=== PATIENT | female | born 1955 | race Caucasian/White ===

== ENCOUNTER 2017-01-20 17:58 | Inpatient (IN) | payer OTHER ==
[~2017-01-20] VITALS: Ht 162.6 cm; Wt 52.0 kg
[~2017-01-20 17:58] MED LIST: ACULAR 0.5100 DROP/5 RIGHT EYE; ALBUTEROL2.5 MG/3 M IH; ATIVAN0.5 MG PO; BENADRYL25 MG PO; CENTRUM SILVER1 EAC4 PO; CIPRO500 MG PO; CIPROFLOXACIN H10 ML RIGHT EYE; CIPROFLOXACIN500 M1 PO; COMBIVENT RESPIM4 GM IH; DOCUSATE SODIU100 MG PO; DOXYCYCLINE HY100 MG PO; FLEXERIL10 MG PO; FLUCONAZOLE200 MG PO; GABAPENTIN400 MG PO; HYDROCHLOROTH12.5 M3 PO; LEVAQUIN500 MG PO; LIPITOR10 MG PO; LISINOPRIL20 MG PO; LOPRESSOR25 MG PO; LOPRESSOR50 MG PO; METHADOSE10 MG/1 ML PO; METOPROLOL SUCC25 MG PO; MICROZIDE12.5 M1 PO; MOTRIN IB200 MG PO; MOTRIN400 MG PO; MOTRIN600 MG PO; MUCINEX600 MG PO; MYCOSTATIN 100,60 ML PO; NEURONTIN400 MG PO; NICODERM CQ1 EAC1 TD; NICODERM CQ1 EAC2 TD; NICOTINE PATCH1 EAC2 TD; NORCO 5/3251 TABLET PO; NYSTATIN100000 UN1 PO; OXYCODONE HCL10 MG PO; OXYCODONE HCL5 MG PO; PERCOCET 10/1 TABLET PO; PHENERGAN DM SYR1 ML PO; POTASSIUM CHLO10 MEQ PO; PRED FORTE100 DROP/5 RIGHT EYE; PREDNISONE10 M1 PO; PREDNISONE10 MG PO; PREDNISONE20 MG PO; PREDNISONE5 MG PO; PROAIR HFA8.5 GM IH; PROTONIX40 MG PO; PROZAC20 MG PO; SINGULAIR10 MG PO; SPIRIVA RESPIMAT4 GM IH; SPIRIVA1 INHALATI IH; SYMBICORT60 INHALAT IH; SYNTHROID25 MCG PO; SYNTHROID50 MCG PO; ULTRAM50 MG PO; VENTOLIN HFA18 GM IH; ZANTAC150 MG PO; ZITHROMAX Z-PA250 MG PO; flexeril
[2017-01-20 18:52] LABS: HEMATOCRIT 40.8 % (36.0-46.0); MCH 28.6 PG (29.0-34.0); MCHC 34.6 G/DL (30.0-36.0); MCV 82.8 FL (83-99); MEAN PLAT.VOLUME 9.3 uM^3 (9.5-12.4); PLATELET COUNT 264 K/uL (156-360); RBC DIS.WIDTH-CV 12.1 % (11.8-14.6); RBC DIS.WIDTH-SD 36.7 % (39-53); RED BLOOD COUNT 4.93 M/uL (3.80-5.20)
[2017-01-20 19:28] LABS: CHLORIDE 83 mEq/L (99-109); POTASSIUM 3.5 mEq/L (3.7-5.4); SODIUM 122 mEq/L (136-147)
[2017-01-20 19:30] LABS: GLUCOSE 108 mg/dL (70-99)
[2017-01-20 19:31] LABS: ANION GAP 11 MEQ/L (2-14)
[2017-01-20 19:34] LABS: GFR ESTIMATE (CALCULATED) 48 mL/min/
[2017-01-20 19:35] LABS: UREA NITROGEN (BUN) 26 mg/dL (9-23)
[2017-01-20 19:39] LABS: TROP-I INTERPRETATION NEGATIVE; TROPONIN-I < 0.01 ng/mL (0.0-0.30)
[2017-01-20 19:46] LABS: INFLUENZA A VIRAL ANTIGEN NEGATIVE; INFLUENZA B VIRAL ANTIGEN NEGATIVE
[2017-01-20] MEDS ORDERED: METOPROLOL TART50 MG PO (20:23)
[2017-01-20] MEDS ORDERED: LOPRESSOR25 MG PO (20:24)
[2017-01-20] MEDS ORDERED: PRINIVIL20 MG PO (20:25)
[2017-01-20] MEDS ORDERED: MUCINEX600 MG PO (20:27)
[2017-01-20] MEDS ORDERED: VENTOLIN HFA18 GM IH (20:28)
[2017-01-20] MEDS ORDERED: PROZAC40 MG PO (20:30)
[2017-01-20] MEDS ORDERED: CENTRUM WOMEN1 EACH PO (20:40)
[2017-01-20 22:27] LABS: TOTAL BILIRUBIN 0.5 mg/dL (0.0-1.0)
[2017-01-20 22:28] LABS: ALKALINE PHOSPHATASE 102 IU/L (3-129)
[2017-01-20 22:31] LABS: DIRECT BILIRUBIN 0.3 mg/dL (0.0-0.3)
[2017-01-21] VITALS (7 sets, daily range): BP systolic 109–140; BP diastolic 58–75
[2017-01-21 05:40] LABS: HEMATOCRIT 36.9 % (36.0-46.0); MCH 27.6 PG (29.0-34.0); MCHC 33.3 G/DL (30.0-36.0); MCV 82.7 FL (83-99); MEAN PLAT.VOLUME 9.6 uM^3 (9.5-12.4); PLATELET COUNT 244 K/uL (156-360); RBC DIS.WIDTH-CV 12.2 % (11.8-14.6); RBC DIS.WIDTH-SD 37.1 % (39-53); RED BLOOD COUNT 4.46 M/uL (3.80-5.20); WHITE BLOOD COUNT 8.5 K/uL (4.1-10.2)
[2017-01-21 06:24] LABS: ANION GAP 6 MEQ/L (2-14); CHLORIDE 90 MEQ/L (99-109); GFR ESTIMATE (CALCULATED) > 59 mL/min/; POTASSIUM 3.8 MEQ/L (3.7-5.4); SAMPLE HEMOLYSIS CHECK 0; SAMPLE ICTERIC CHECK 0; SAMPLE LIPEMIA CHECK 0; SODIUM 123 MEQ/L (136-147); UREA NITROGEN (BUN) 27 mg/dL (9-23)
[2017-01-21 06:25] LABS: GLUCOSE 163 mg/dL (70-99)
[2017-01-22 04:10] VITALS: BP 122/66
[2017-01-22 08:06] VITALS: BP 128/69
[2017-01-22 11:38] VITALS: BP 122/67
[2017-01-22 16:42] VITALS: BP 131/71
[2017-01-22 20:05] VITALS: BP 139/81
[2017-01-23 00:33] VITALS: BP 125/71
[2017-01-23 07:52] VITALS: BP 146/74
[2017-01-23] MEDS ORDERED: PREDNISONE20 MG PO (10:24)
[2017-01-23] MEDS ORDERED: LEVAQUIN500 MG PO (10:30)
== END 2017-01-23 15:18 | disposition home or self-care (01) | DRG 190 ==
LOC: EME → EDBD 17:58 → EDOF 21:45 → 5SOUTH 21:45
PROVIDERS: Emergency Medicine; Hospitalist
DX: J44.1 Chronic obstructive pulmonary disease with (acute) exacerbation (principal); J96.21 Acute and chronic respiratory failure with hypoxia; E87.1 Hypo-osmolality and hyponatremia; F11.20 Opioid dependence, uncomplicated; B37.0 Candidal stomatitis; G89.29 Other chronic pain; F33.41 Major depressive disorder, recurrent, in partial remission; I10 Essential (primary) hypertension; E03.9 Hypothyroidism, unspecified; K21.9 Gastro-esophageal reflux disease without esophagitis; Z87.891 Personal history of nicotine dependence; Z99.81 Dependence on supplemental oxygen; Z88.2 Allergy status to sulfonamides; Z88.0 Allergy status to penicillin; Z88.1 Allergy status to other antibiotic agents
CPT/HCPCS: 71020; 80048; 80076; 81003; 82436; 82533 91; 83880; 84133; 84300; 84443; 84484; 85027; 87502; 93005; 94640; 94640 76; 94799; 99202; 99281; 99285; J1644; J2060; J2930; J7030; J7512; J7644

== ENCOUNTER 2017-04-21 23:08 | Inpatient (IN) | payer OTHER ==
[~2017-04-21] VITALS: Ht 162.6 cm; Wt 72.0 kg
[~2017-04-21 23:08] MED LIST changes: +CENTRUM WOMEN1 EACH PO; +METOPROLOL TART50 MG PO; +PRINIVIL20 MG PO; +PROZAC40 MG PO
[2017-04-21 23:36] LABS: HEMATOCRIT 48.8 % (36.0-46.0); MCH 28.7 PG (29.0-34.0); MCHC 33.6 G/DL (30.0-36.0); MCV 85.3 FL (83-99); MEAN PLAT.VOLUME 8.7 uM^3 (9.5-12.4); PLATELET COUNT 302 K/uL (156-360); RBC DIS.WIDTH-CV 13.2 % (11.8-14.6); RBC DIS.WIDTH-SD 41.3 % (39-53); RED BLOOD COUNT 5.72 M/uL (3.80-5.20); WHITE BLOOD COUNT 11.2 K/uL (4.1-10.2)
[2017-04-21 23:52] LABS: CHLORIDE 88 mEq/L (99-109); POTASSIUM 4.1 mEq/L (3.7-5.4); SODIUM 126 mEq/L (136-147)
[2017-04-21 23:53] LABS: GLUCOSE 99 mg/dL (70-99)
[2017-04-21 23:55] LABS: ANION GAP 8 MEQ/L (2-14)
[2017-04-21 23:57] LABS: GFR ESTIMATE (CALCULATED) > 59 mL/min/
[2017-04-21 23:58] LABS: UREA NITROGEN (BUN) 19 mg/dL (9-23)
[2017-04-22 00:01] LABS: TROP-I INTERPRETATION NEGATIVE; TROPONIN-I < 0.01 ng/mL (0.0-0.30)
[2017-04-22] MEDS ORDERED: PROZAC20 MG PO ×2 (01:27→01:28)
[2017-04-22] MEDS ORDERED: HYDROCHLOROTHIA25 MG PO (01:28)
[2017-04-22] MEDS ORDERED: PROTONIX40 MG PO (01:28)
[2017-04-22] MEDS ORDERED: TUDORZA PRESS400 MCG IH (01:29)
[2017-04-22 06:06] VITALS: BP 128/82
[2017-04-22 12:06] VITALS: BP 103/55
[2017-04-22 19:25] LABS: ADD MIUA? YES; BILIRUBIN NEGATIVE; BLOOD SMALL; COLOR YELLOW ((YELLOW)); GLUCOSE (STRIP) NEGATIVE; KETONES NEGATIVE; LEUKOCYTES MODERATE; NITRITE NEGATIVE; PROTEIN (STRIP) NEGATIVE; SPECIFIC GRAVITY 1.025 (1.000-1.030)
[2017-04-22 19:44] VITALS: BP 95/52
[2017-04-22 19:48] LABS: BACTERIA RARE /HPF; BUDDING YEAST 2+; EPITHELIAL CELLS RARE /HPF; MUCUS TRACE /LPF; RED BLOOD CELLS 40-50 /HPF (0-5); UNCLASSIFIED CRYSTALS 2+ /HPF; WHITE BLOOD CELLS 40-50 /HPF (0-5)
[2017-04-22 23:51] VITALS: BP 117/63
[2017-04-23 03:23] VITALS: BP 120/69
[2017-04-23 06:36] LABS: EOSINOPHIL (%) 0 % (0-5); HEMATOCRIT 40.9 % (36.0-46.0); IMMATURE GRANULOCYTE (%) 0.8 % (0.0-0.7); IMMATURE GRANULOCYTE COUNT 0.1 K/uL; INSTRUMENT ABS NEUTROPHIL CT 15.5 K/uL; LYMPHOCYTE COUNT 0.9 K/uL (1.0-2.8); MCV 85.4 FL (83-99); MONOCYTE (%) 2.1 % (3-12); MONOCYTE COUNT 0.4 K/uL (0-0.8); NEUTROPHIL (%) 91.6 % (45-76); NEUTROPHIL COUNT 15.5 K/uL (1.8-6.4); PLATELET COUNT 262 K/uL (156-360); RBC DIS.WIDTH-CV 13.3 % (11.8-14.6); RBC DIS.WIDTH-SD 41.2 % (39-53); RED BLOOD COUNT 4.79 M/uL (3.80-5.20); WHITE BLOOD COUNT 16.9 K/uL (4.1-10.2)
[2017-04-23 06:43] LABS: ANION GAP 7 MEQ/L (2-14); CHLORIDE 90 MEQ/L (99-109); GFR ESTIMATE (CALCULATED) > 59 mL/min/; POTASSIUM 3.8 MEQ/L (3.7-5.4); SAMPLE HEMOLYSIS CHECK 0; SAMPLE ICTERIC CHECK 0; SAMPLE LIPEMIA CHECK 0; SODIUM 124 MEQ/L (136-147); UREA NITROGEN (BUN) 28 mg/dL (9-23)
[2017-04-23 06:52] LABS: GLUCOSE 150 mg/dL (70-99)
[2017-04-23 08:50] VITALS: BP 110/67
[2017-04-23 10:57] VITALS: BP 123/66
[2017-04-23 11:11] LABS: URIC ACID 2.5 mg/dL (3.1-9.2)
[2017-04-23 15:57] VITALS: BP 123/60
[2017-04-23 18:30] LABS: UR CREATININE CONCENTRATION 125.8 MG/DL
[2017-04-23 20:11] VITALS: BP 116/61
[2017-04-24 00:11] VITALS: BP 122/67
[2017-04-24 03:46] VITALS: BP 119/72
[2017-04-24 07:10] LABS: ANION GAP 8 MEQ/L (2-14); CHLORIDE 95 MEQ/L (99-109); GFR ESTIMATE (CALCULATED) > 59 mL/min/; GLUCOSE 139 mg/dL (70-99); POTASSIUM 4.2 MEQ/L (3.7-5.4); SAMPLE HEMOLYSIS CHECK 0; SAMPLE ICTERIC CHECK 0; SAMPLE LIPEMIA CHECK 0; UREA NITROGEN (BUN) 30 mg/dL (9-23)
[2017-04-24 07:11] LABS: SODIUM 131 MEQ/L (136-147)
[2017-04-24 08:02] VITALS: BP 120/80
[2017-04-24] MEDS ORDERED: LEVOFLOXACIN250 MG PO (10:51)
[2017-04-24] MEDS ORDERED: PREDNISONE10 MG PO ×2 (10:53)
[2017-04-24 11:30] VITALS: BP 132/79
[2017-04-24] MEDS ORDERED: TRAMADOL HCL50 MG PO (11:51)
[2017-04-24 15:08] VITALS: BP 136/77
== END 2017-04-24 15:07 | disposition home or self-care (01) | DRG 916 ==
LOC: EME 23:08 → 5SOUTH 04-22 03:26 → EDOF 04-22 03:26 → 5SOUTH 04-22 05:59
PROVIDERS: Emergency Medicine; Internal Medicine
DX: T78.3XXA Angioneurotic edema, initial encounter (principal); J44.0 Chronic obstructive pulmonary disease with (acute) lower respiratory infection; J44.1 Chronic obstructive pulmonary disease with (acute) exacerbation; J20.9 Acute bronchitis, unspecified; T39.315A Adverse effect of propionic acid derivatives, initial encounter; J96.11 Chronic respiratory failure with hypoxia; Z99.81 Dependence on supplemental oxygen; F11.20 Opioid dependence, uncomplicated; E87.1 Hypo-osmolality and hyponatremia; N39.0 Urinary tract infection, site not specified; R31.9 Hematuria, unspecified; E86.0 Dehydration; G89.4 Chronic pain syndrome; I10 Essential (primary) hypertension; B18.2 Chronic viral hepatitis C; K21.9 Gastro-esophageal reflux disease without esophagitis; F32.9 Major depressive disorder, single episode, unspecified; E89.0 Postprocedural hypothyroidism; F17.210 Nicotine dependence, cigarettes, uncomplicated; Z79.899 Other long term (current) drug therapy
CPT/HCPCS: 71010; 71250; 80048; 81003; 82436; 82570; 83880; 83935; 84300; 84443; 84484; 84550; 85025; 85027; 93005; 94640; 94640 76; 94799; 99202; 99281; 99285; J1200; J1644; J1956; J2930; J7030; S0028

== ENCOUNTER 2017-06-10 14:31 | Inpatient (IN) | payer OTHER ==
[~2017-06-10] VITALS: Ht 162.6 cm; Wt 48.9 kg
[~2017-06-10 14:31] MED LIST changes: +HYDROCHLOROTHIA25 MG PO; +LEVOFLOXACIN250 MG PO; +TRAMADOL HCL50 MG PO; +TUDORZA PRESS400 MCG IH
[2017-06-10 15:07] LABS: EOSINOPHIL (%) 0.3 % (0-5); HEMATOCRIT 40.5 % (36.0-46.0); IMMATURE GRANULOCYTE (%) 0.4 % (0.0-0.7); INSTRUMENT ABS NEUTROPHIL CT 8.4 K/uL; LYMPHOCYTE COUNT 1.3 K/uL (1.0-2.8); MCH 29.4 PG (29.0-34.0); MCHC 33.8 G/DL (30.0-36.0); MCV 86.9 FL (83-99); MEAN PLAT.VOLUME 8.9 uM^3 (9.5-12.4); MONOCYTE (%) 8.5 % (3-12); MONOCYTE COUNT 0.9 K/uL (0-0.8); NEUTROPHIL (%) 78.7 % (45-76); NEUTROPHIL COUNT 8.4 K/uL (1.8-6.4); PLATELET COUNT 306 K/uL (156-360); RBC DIS.WIDTH-CV 12.8 % (11.8-14.6); RBC DIS.WIDTH-SD 40.5 % (39-53); RED BLOOD COUNT 4.66 M/uL (3.80-5.20); WHITE BLOOD COUNT 10.7 K/uL (4.1-10.2)
[2017-06-10 15:13] LABS: PROTHROMBIN TIME 10.7 SEC (10.2-12.9)
[2017-06-10 15:15] LABS: PTT 29.2 SEC (25-37)
[2017-06-10 15:18] LABS: CHLORIDE 83 mEq/L (99-109); POTASSIUM 4.1 mEq/L (3.7-5.4); SODIUM 122 mEq/L (136-147)
[2017-06-10 15:20] LABS: GLUCOSE 108 mg/dL (70-99)
[2017-06-10 15:21] LABS: ANION GAP 9 MEQ/L (2-14)
[2017-06-10 15:22] LABS: TOTAL BILIRUBIN 0.7 mg/dL (0.0-1.0)
[2017-06-10 15:24] LABS: ALKALINE PHOSPHATASE 92 IU/L (3-129); GFR ESTIMATE (CALCULATED) > 59 mL/min/
[2017-06-10 15:25] LABS: UREA NITROGEN (BUN) 17 mg/dL (9-23)
[2017-06-10 15:26] LABS: DIRECT BILIRUBIN 0.4 mg/dL (0.0-0.3)
[2017-06-10 15:31] LABS: TROP-I INTERPRETATION NEGATIVE; TROPONIN-I < 0.01 ng/mL (0.0-0.30)
[2017-06-10] MEDS ORDERED: HYDROCHLOROTH12.5 M3 PO (19:28)
[2017-06-10] MEDS ORDERED: LEVAQUIN250 MG PO (19:30)
[2017-06-10 20:47] LABS: C3 COMPLEMENT 106 MG/DL (58-170); C4 COMPLEMENT 16 MG/DL (10-40)
[2017-06-10 20:55] VITALS: BP 113/62
[2017-06-10 21:13] LABS: ADD MIUA? NO; BILIRUBIN NEGATIVE; BLOOD NEGATIVE; COLOR YELLOW ((YELLOW)); GLUCOSE (STRIP) 50; KETONES NEGATIVE; LEUKOCYTES NEGATIVE; NITRITE NEGATIVE; PROTEIN (STRIP) NEGATIVE; SPECIFIC GRAVITY 1.006 (1.000-1.030); UCUL ADDED? NO; UROBILINOGEN 0.2 MG/DL (0.2-1.0)
[2017-06-10 23:59] VITALS: BP 108/68
[2017-06-11 04:00] VITALS: BP 111/59
[2017-06-11 06:00] LABS: MCH 29.8 PG (29.0-34.0); MCHC 33.9 G/DL (30.0-36.0); MEAN PLAT.VOLUME 9.3 uM^3 (9.5-12.4); PLATELET COUNT 251 K/uL (156-360); RBC DIS.WIDTH-CV 13.2 % (11.8-14.6); RED BLOOD COUNT 4.09 M/uL (3.80-5.20); WHITE BLOOD COUNT 6.6 K/uL (4.1-10.2)
[2017-06-11 06:29] LABS: ALKALINE PHOSPHATASE 65 IU/L (3-129); ANION GAP 8 MEQ/L (2-14); CHLORIDE 92 MEQ/L (99-109); GFR ESTIMATE (CALCULATED) > 59 mL/min/; GLUCOSE 140 mg/dL (70-99); POTASSIUM 4.6 MEQ/L (3.7-5.4); SAMPLE HEMOLYSIS CHECK 0; SAMPLE ICTERIC CHECK 0; SAMPLE LIPEMIA CHECK 0; SODIUM 127 MEQ/L (136-147); TOTAL BILIRUBIN 0.4 MG/DL (0.0-1.0); UREA NITROGEN (BUN) 12 mg/dL (9-23)
[2017-06-11 09:13] VITALS: BP 114/58
[2017-06-11 12:58] VITALS: BP 123/62
[2017-06-11 17:40] VITALS: BP 112/64
[2017-06-12] VITALS: BP 133/71
[2017-06-12 03:27] VITALS: BP 157/84
[2017-06-12 06:37] LABS: ANION GAP 6 MEQ/L (2-14); CHLORIDE 101 MEQ/L (99-109); GFR ESTIMATE (CALCULATED) > 59 mL/min/; POTASSIUM 3.7 MEQ/L (3.7-5.4); SAMPLE HEMOLYSIS CHECK 0; SAMPLE ICTERIC CHECK 0; SAMPLE LIPEMIA CHECK 0; UREA NITROGEN (BUN) 12 mg/dL (9-23)
[2017-06-12 07:00] LABS: GLUCOSE 77 mg/dL (70-99); SODIUM 136 MEQ/L (136-147)
[2017-06-12 09:08] VITALS: BP 154/91
[2017-06-12] MEDS ORDERED: PREDNISONE20 MG PO (11:08)
[2017-06-12 11:36] LABS: HBSG INDEX 0.18
[2017-06-12 11:37] LABS: ANTI-HEPATITIS A VIRUS (IGM) Nonreactive; HAV INDEX 0.16
[2017-06-12 11:39] LABS: ANTI-HEPATITIS B CORE (IGM) Nonreactive; HBC IgM INDEX 0.07
[2017-06-12 11:43] LABS: HPCA INDEX 12.14
[2017-06-16 21:06] LABS: Neutrophil Cytoplasmic Aby Negative (Negative)
[2017-06-17 15:00] LABS: Rickettsia (RMSF) IgG Not Detected (Not Detected); Rickettsia (RMSF) IgM Not Detected (Not Detected)
== END 2017-06-12 13:50 | disposition home or self-care (01) | DRG 191 ==
LOC: EME 14:31 → EDOF 19:29 → ENRESERV 19:31 → 5SOUTH 20:34
PROVIDERS: Emergency Medicine; Internal Medicine
DX: J44.1 Chronic obstructive pulmonary disease with (acute) exacerbation (principal); A09 Infectious gastroenteritis and colitis, unspecified; I10 Essential (primary) hypertension; E87.1 Hypo-osmolality and hyponatremia; E89.0 Postprocedural hypothyroidism; F17.210 Nicotine dependence, cigarettes, uncomplicated; K21.9 Gastro-esophageal reflux disease without esophagitis; Z99.81 Dependence on supplemental oxygen; F32.9 Major depressive disorder, single episode, unspecified
CPT/HCPCS: 70450; 71020; 80048; 80053; 80074; 80076; 81003; 83605; 83630; 83690; 83880; 83930; 83935; 84300; 84484; 85025; 85027; 85610; 85730; 86021 90; 86160; 86162 90; 86757 90; 87177; 87493; 93005; 94640; 94640 76; 94799; 99202; 99281; 99285; J1644; J2930; J7030; J7512

== ENCOUNTER 2018-02-18 18:19 | Emergency (ER) | payer OTHER ==
[~2018-02-18] VITALS: Ht 162.6 cm; Wt 63.0 kg
[~2018-02-18 18:19] MED LIST changes: +LEVAQUIN250 MG PO
[2018-02-18] MEDS ORDERED: DUONEB 2.5-0.5 M3 ML AEROSOL (21:36)
[2018-02-18] MEDS ORDERED: PREDNISONE20 MG PO (21:36)
[2018-02-18 21:58] LABS: APPEARANCE CLEAR ((CLEAR)); BILIRUBIN NEGATIVE; BLOOD NEGATIVE; COLOR YELLOW ((YELLOW)); GLUCOSE (STRIP) NEGATIVE; KETONES NEGATIVE; LEUKOCYTES NEGATIVE; NITRITE NEGATIVE; PROTEIN (STRIP) 30; SPECIFIC GRAVITY 1.023 (1.000-1.030)
[2018-02-18 23:39] VITALS: BP 137/89
== END 2018-02-18 23:40 | disposition home or self-care (01) ==
LOC: EME 18:19
PROVIDERS: Emergency Medicine Emergency Medical Services
DX: J44.1 Chronic obstructive pulmonary disease with (acute) exacerbation (principal); J06.9 Acute upper respiratory infection, unspecified; R09.02 Hypoxemia; I10 Essential (primary) hypertension; K21.9 Gastro-esophageal reflux disease without esophagitis; E89.0 Postprocedural hypothyroidism; F41.9 Anxiety disorder, unspecified; F32.9 Major depressive disorder, single episode, unspecified; Z87.891 Personal history of nicotine dependence; Z85.3 Personal history of malignant neoplasm of breast; Z85.42 Personal history of malignant neoplasm of other parts of uterus; Z90.49 Acquired absence of other specified parts of digestive tract; Z99.81 Dependence on supplemental oxygen; Z88.5 Allergy status to narcotic agent; Z88.1 Allergy status to other antibiotic agents; Z88.2 Allergy status to sulfonamides; Z88.0 Allergy status to penicillin; Z88.6 Allergy status to analgesic agent; Z88.8 Allergy status to other drugs, medicaments and biological substances
CPT/HCPCS: 71045; 81003; 94640; 99281; 99284; J7512; J7644